=== PATIENT | male | born 1990 | race Two or more races ===

== ENCOUNTER 2020-12-23 16:00 | Emergency (ER) | payer MEDICAID, OTHER ==
[~2020-12-23] VITALS: Ht 167.6 cm; Wt 86.2 kg
[2020-12-23 16:02] VITALS: BP 139/94
== END 2020-12-23 19:23 | disposition left against medical advice (07) ==
LOC: ER 16:03
DX: K08.89 Other specified disorders of teeth and supporting structures (principal); Z53.21 Procedure and treatment not carried out due to patient leaving prior to being seen by health care provider

== ENCOUNTER 2020-12-31 17:22 | Emergency (ER) | payer MEDICAID ==
[~2020-12-31] VITALS: Ht 170.2 cm; Wt 86.2 kg
[2020-12-31 18:04] VITALS: BP 131/83
== END 2020-12-31 19:50 | disposition home or self-care (01) ==
LOC: ER 17:22
DX: T63.441D Toxic effect of venom of bees, accidental (unintentional), subsequent encounter (principal); L03.114 Cellulitis of left upper limb; F41.9 Anxiety disorder, unspecified
CPT/HCPCS: 71046; 93005

== ENCOUNTER 2021-04-07 17:55 | Emergency (ER) | payer MEDICAID ==
[~2021-04-07] VITALS: Ht 167.6 cm; Wt 86.2 kg
[2021-04-07 23:00] VITALS: BP 135/81
== END 2021-04-07 23:08 | disposition home or self-care (01) ==
LOC: ER 17:55
DX: J06.9 Acute upper respiratory infection, unspecified (principal); K04.7 Periapical abscess without sinus; H61.23 Impacted cerumen, bilateral; M94.0 Chondrocostal junction syndrome [Tietze]; E66.9 Obesity, unspecified; K08.89 Other specified disorders of teeth and supporting structures; Z68.30 Body mass index [BMI] 30.0-30.9, adult

== ENCOUNTER 2022-10-21 17:27 | Emergency (ER) | payer MEDICAID ==
[~2022-10-21] VITALS: Ht 170.2 cm; Wt 84.1 kg
[2022-10-21 20:33] VITALS: BP 118/79
[2022-10-21] MEDS ORDERED: IBUP800T27 PO (21:05)
[2022-10-21] MEDS ORDERED: AMOX-277 PO (21:05)
[2022-10-21] MEDS ORDERED: cefTRIAXone SOD 1,000 MG VL IM ONE (21:15)
[2022-10-21] MEDS ORDERED: KETOROLAC TROMETH 60MG/2ML VIAL IM ONE (21:15)
[2022-10-21] MEDS ORDERED: BENZOCAINE (DENTAL) 20 % SPRAY 60ML MT ONE (21:15)
== END 2022-10-21 22:05 | disposition home or self-care (01) ==
LOC: ER 17:27
DX: S02.5XXA Fracture of tooth (traumatic), initial encounter for closed fracture (principal); K04.7 Periapical abscess without sinus; Z79.1 Long term (current) use of non-steroidal anti-inflammatories (NSAID); Z79.2 Long term (current) use of antibiotics; X58.XXXA Exposure to other specified factors, initial encounter; Y93.89 Activity, other specified; Y92.89 Other specified places as the place of occurrence of the external cause; Y99.8 Other external cause status
CPT/HCPCS: 96372; 99284; J0696; J1885

== ENCOUNTER 2024-03-02 04:54 | Emergency (ER) | payer MEDICAID ==
[~2024-03-02] VITALS: Ht 170.2 cm; Wt 88.2 kg
[~2024-03-02 04:54] MED LIST: AMOX875T4 PO; IBUP-1456 PO
[2024-03-02] MEDS: KETOROLAC TROMETH 60MG/2ML VIAL IM ONE (05:28)
[2024-03-02] MEDS: cefTRIAXone SOD 1,000 MG VL IM ONE (05:28)
[2024-03-02] MEDS: BENZOCAINE (DENTAL) 20 % SPRAY 60ML MT ONE (05:28)
[2024-03-02] MEDS: LIDOCAINE 1% HCL (LOCAL ANESTH.) INJ 20ML MDV ONE (05:34)
[2024-03-02 06:13] VITALS: BP 118/78; PULSE 71; RESP 16; TEMP 97.9; O2SAT 96
== END 2024-03-02 06:14 | disposition home or self-care (01) ==
LOC: ER 04:54
DX: K04.7 Periapical abscess without sinus (principal); F41.9 Anxiety disorder, unspecified; F12.10 Cannabis abuse, uncomplicated
CPT/HCPCS: 96372; 99284; J0696; J1885; J2001